=== PATIENT | female | born 1945 | race Caucasian/White ===

== ENCOUNTER → 2017-05-07 | Outpatient (CLI) | payer OTHER ==
[2017-05-07 08:40] LABS: CREATININE 0.8 mg/dL (0.6-1.3)
== END ==
LOC: M.LAB 07:45 → M.MRI 08:30
PROVIDERS: Internal Medicine
DX: G44.229 Chronic tension-type headache, not intractable (principal); I10 Essential (primary) hypertension; R20.0 Anesthesia of skin

== ENCOUNTER → 2017-05-11 | Outpatient (CLI) | payer OTHER | LOC: M.ULTRA 13:26 | DX: I10 Essential (primary) hypertension (principal) ==

== ENCOUNTER → 2017-05-29 | Outpatient (CLI) | payer OTHER ==
--- NOTE | 2017-05-29 15:26 | 2DMMODE ---
[place] [address] 2 D/M-MODE ECHOCARDIOGRAM Name: MARYANN GONZALEZ Room: [facility]#: [id number] Admission: 05/29/17 Attend Phys: Darell Ayoub, Discharge: Date of : 41 Date of Service: 05/29/17 1526 Report #: [id number] THIS REPORT FOR: //name// APPROVED REPORT Study performed: 05/29/2017 09:23:34 EXAM: Comprehensive 2D, Doppler, and color-flow Echocardiogram Patient Location: Out-Patient Status: routine BSA: 2.17 HR: 75 bpm BP: 170/92 mmHg Other Information Study Quality: Good Indications Chest Pain 2D Dimensions LVEF(%): 62.78 (>50%) IVSd: 12.28 (7-11mm) LVOT Diam: 20.25 (18-24mm) LVDd: 46.23 mm PWd: 11.47 (7-11mm) Ascending Ao: 32.19 (22-36mm) LVDs: 30.58 (25-40mm) Aortic Root: 26.62 mm Singh's LVEF: 62.78 % Volumes Left Atrial Volume (Systole) LA ESV Index: 14.40 mL/m2 Aortic Valve AoV Peak Scott.: 1.27 m/s AO Peak Gr.: 6.46 mmHg LVOT Max P.88 mmHg AO Mean Gr.: 3.60 mmHg LVOT Mean P.34 mmHg LVOT Max V: 0.85 m/s AO V2 VTI: 26.26 cm LVOT Mean V: 0.52 m/s SHARON (VTI): 2.52 cm2 LVOT V1 VTI: 20.54 cm Mitral Valve E/A Ratio: 1.00 MV Decel. Time: 215.48 [place] [address] 2 D/M-MODE ECHOCARDIOGRAM Name: MARYANN GONZALEZ Room: [facility]#: [id number] Admission: 05/29/17 Attend Phys: Darell Ayoub, Discharge: Date of : 41 Date of Service: 05/29/17 1526 Report #: [id number] MV E Max Scott.: 0.79 m/s MV PHT: 62.49 ms MVA (PHT): 3.52 cm2 TDI E/Lateral E': 7.18 E/Medial E': 8.78 Medial E' Scott.: 0.09 m/s Lateral E' Scott.: 0.11 m/s Pulmonary Valve PV Peak Scott.: 0.86 m/s PV Peak Gr.: 2.96 mmHg Left Ventricle The left ventricle is normal size. There is normal LV segmental wall motion. There is normal left ventricular wall thickness. Left ventricular systolic function is normal. LVEF is 55-60%. Transmitral Doppler flow pattern suggests impaired LV relaxation. Right Ventricle The right ventricle is normal size. The right ventricular systolic function is normal. Atria The left atrium size is normal. The right atrium size is normal. Aortic Valve The aortic valve is normal in structure. No aortic regurgitation is present. There is no aortic valvular stenosis. Mitral Valve The mitral valve is normal in structure. There is no mitral valve regurgitation noted. No evidence of mitral valve stenosis. Tricuspid Valve The tricuspid valve is normal in structure. There is no tricuspid valve regurgitation noted. Pulmonic Valve The pulmonary valve is normal in structure. Mild pulmonic regurgitation. Great Vessels The aortic root is normal in size. IVC is normal in size and collapses with >50% [place] [address] 2 D/M-MODE ECHOCARDIOGRAM Name: MARYANN GONZALEZ Dante Room: [facility]#: [id number] Admission: 05/29/17 Attend Phys: Darlel Ayoub, Discharge: Date of : 41 Date of Service: 05/29/17 1526 Report #: [id number] Pericardium There is no pericardial effusion. <Conclusion> The left ventricle is normal size. There is normal left ventricular wall thickness. Left ventricular systolic function is normal. LVEF is 55-60%. Transmitral Doppler flow pattern suggests impaired LV relaxation. Mild pulmonic regurgitation. <ELECTRONICALLY SIGNED> By: Jhoan Amin MD, FACC 05/29/17 1526 1526 1526 Jhoan Amin MD, FACC /INF
--- NOTE | 2017-05-31 17:42 | TST ---
[place] [address] TREADMILL STRESS TEST Name: CARLOSMARYANN J Room: [facility]#: [id number] Admission: 05/29/17 Attend Phys: Regina Ayoub, Discharge: Date of : 41 Date of Service: 05/29/17 1735 Report #: [id number] THIS REPORT FOR: //name// CC: REGINA Ayoub DATE OF SERVICE: 05/29/2017 INDICATIONS: Exercise stress test was requested in this patient with a history of hypertension. PROCEDURE: An exercise stress test was requested in this patient and was performed using a Alessandro protocol from a Pretest heart rate of 70, blood pressure 174/70. The patient was able to only exercise for 4 minutes and 20 seconds achieving a peak heart rate of 154, which was greater than 90% of maximum predicted heart rate for the patient's age. Peak blood pressure 255/74. In recovery, the patient had a heart rate of 100, blood pressure 180/60. The patient denied chest pain with exercise, was terminated because of fatigue and elevated blood pressure. The patient's resting ECG showed a sinus rhythm with nonspecific ST segment depression at baseline. With exercise, there was no arrhythmia noted. There was rare PVC. The patient did develop upsloping ST segment depression with exercise and at peak exercise was noted to have 1.[address] segment depression in V4, V5 and V6. ST segment changes persisted beyond 6 minutes in recovery. IMPRESSION: 1. Poor exercise tolerance. 2. No chest pain with exercise. 3. Hypertensive blood pressure response to exercise. 4. Nonspecific ST segment changes noted at baseline. 5. Nonspecific ST segment changes noted with exercise. 6. Nondiagnostic exercise stress test for myocardial ischemia secondary to baseline ECG abnormalities. 7. If clinically indicated, I would consider a pharmacologic nuclear stress testing to rule out ischemia. <ELECTRONICALLY SIGNED> By: Regina Mariano MD, FACC 05/31/17 1742 1735 2112 Regina Mariano MD, FACC /nt
== END ==
LOC: M.CRD 08:49
DX: I37.1 Nonrheumatic pulmonary valve insufficiency (principal); I10 Essential (primary) hypertension

== ENCOUNTER → 2017-10-12 | Outpatient (CLI) | payer OTHER | LOC: M.RAD 12:45 | DX: Z12.31 Encounter for screening mammogram for malignant neoplasm of breast (principal) ==

== ENCOUNTER → 2018-11-01 | Outpatient (CLI) | payer OTHER | LOC: M.RAD 13:57 | DX: Z12.31 Encounter for screening mammogram for malignant neoplasm of breast (principal) ==

== ENCOUNTER → 2019-11-07 | Outpatient (CLI) | payer OTHER | LOC: M.RAD 13:30 | PROVIDERS: ATTEND Registered Nurse Diabetes Educator | DX: Z12.31 Encounter for screening mammogram for malignant neoplasm of breast (principal) ==

== ENCOUNTER → 2019-11-20 | Outpatient (CLI) | payer OTHER | LOC: M.ULTRA 09:00 | PROVIDERS: ATTEND Registered Nurse Diabetes Educator | DX: N63.11 Unspecified lump in the right breast, upper outer quadrant (principal); N60.01 Solitary cyst of right breast ==

== ENCOUNTER → 2019-12-18 | Outpatient (CLI) | payer OTHER | LOC: M.RAD 14:14 | PROVIDERS: ATTEND Internal Medicine | DX: M19.031 Primary osteoarthritis, right wrist (principal); M19.032 Primary osteoarthritis, left wrist; M85.80 Other specified disorders of bone density and structure, unspecified site ==

== ENCOUNTER → 2020-12-03 | Outpatient (CLI) | payer OTHER | LOC: M.RAD 11-17 14:20 | PROVIDERS: ATTEND Internal Medicine | DX: Z12.31 Encounter for screening mammogram for malignant neoplasm of breast (principal) ==